=== PATIENT | male | born 1995 | race Caucasian/White ===

== ENCOUNTER 2016-10-13 14:22 | Emergency (ER) | payer OTHER ==
[~2016-10-13] VITALS: Ht 182.9 cm; Wt 75.8 kg
[2016-10-13 14:34] VITALS: TEMP 36.6; Ht 182.9 cm; Wt 75.8 kg
--- NOTE | 2016-10-13 15:29 | DIAGNOSTIC IMAGING REPORT ---
RIGHT ANKLE 3 VIEWS HISTORY: Right ankle pain. COMPARISON: None. FINDINGS: There is no fracture or dislocation. Lateral ankle/foot soft tissue swelling. No radiopaque foreign bodies. IMPRESSION: No fractures. Electronically signed by: Chas Moraes M.D. 10/13/2016 3:27 PM Dictated Date/Time: 10/13/2016 3:25 PM
--- NOTE | 2016-10-13 15:38 | EMERGENCY ROOM VISIT NOTE ---
ED Visit Note First contact with patient: 15:03 Chief Complaint: RIGHT Heel Pain History of Present Illness: Patient is a 21-year-old male who presents to the emergency department by private vehicle for evaluation of his RIGHT heel and ankle pain. He reports that on Friday night he jumped from a small retaining wall and missed his landing resulted in immediate pain to the heel and ankle. He reports increasing pain with ambulation. He did purchase a pair of crutches to help with ambulation. He denies any numbness or tingling into the toes. He reports no history of fracture or injury to the affected area. The patient rates his current discomfort as a 10/10. He is tried nothing sdvc-[id number]-[id number] for symptoms. He denies any associated toe pain, leg pain, knee pain, or hip pain. Medications: No current medications. Allergies: Penicillins, cephalosporins PMH: No pertinent past medical history. SHx: Patient is a 21-year-old [employer] student who lives with roommates. ROS: All pertinent positive and negative review of systems are appropriately documented in the History of Present Illness. Physical Exam: VITAL SIGNS - Vital signs and nursing notes were reviewed. GENERAL - 21-year-old male appearing his stated age and in noticeable discomfort throughout the exam. MUSCULOSKELETAL - RIGHT ankle with moderate edema and developing ecchymosis to the lateral surface of the RIGHT ankle. Tenderness to palpation appreciated in this area. Tenderness to palpation noted to the RIGHT heel. Full range of motion of flexion and extension of the affected foot appreciated. +5/5 strength appreciated bilaterally. NEUROLOGIC/VASCULAR - Neurovascularly intact distally with +3/5 dorsalis pedis pulses palpated bilaterally. Normal sensation to light and sharp touch appreciated distally. IMAGING: RIGHT ANKLE 3 VIEWS HISTORY: Right ankle pain. COMPARISON: None. FINDINGS: There is no fracture or dislocation. Lateral ankle/foot soft tissue swelling. No radiopaque foreign bodies. IMPRESSION: No fractures. ED Course: Patient was seen and evaluated by myself. Patient was provided an ice pack for comfort. X-rays were obtained of the affected ankle. Imaging results as above. Images were discussed and reviewed with the patient who acknowledges understanding. Patient was provided a Gel Ankle Splint for their comfort. Patient has crutches of his own. Patient will utilize uysd-mxa-zcwbsva medication for pain control at home. Patient educated on worrisome symptoms for return visit to the emergency department. Patient with follow-up with their primary care provided in 4-5 days if their symptoms are not improving. Patient discharged to home in good condition. Impression: RIGHT Ankle Sprain, RIGHT Heel Contusion Discharge Instructions: You have been treated in the Emergency Department for your RIGHT Ankle Sprain and RIGHT Heel Contusion. For pain control, you can use the following urbb-ovi-jjmtfrz medicines (if >12 yo): - Regular strength (325mg/tab) Tylenol (acetaminophen) 2 tabs every 4-6 hours as needed. Do not exceed 12 tablets in a 24 hour period. Avoid taking more than 4 grams (4000 mg) of Tylenol per day. This includes any other sources of acetaminophen you may take on a regular basis. - Regular strength (200 mg/tab) Advil (ibuprofen) 1-2 tabs every 4-6 hours as needed. Do not exceed a dose of 3200 mg per day. If this is a recent injury (<24 hrs), ice can be applied to the area of pain for the first 3 days to help decrease pain and inflammation. Please use the crutches and ankle splint until you are able to ambulate without discomfort. You can continue to use the ankle splint for the next 1-2 weeks to help with ankle stability. Follow-up with your primary care provider or Orthopedic Surgeon in 4-5 days if your symptoms are not improving despite the treatment plan outlined above. Return to the Emergency Department if your current symptoms worsen despite treatment course outlined above, or if you develop any of the following symptoms : intractable pain despite aforementioned treatment course or new onset of numbness or tingling of the foot. Current/Historical Medications No Active Prescriptions or Reported Meds Allergies Coded Allergies: Cephalosporins (Verified Allergy, Intermediate, Hives, 10/13/16) Penicillins (Verified Allergy, Intermediate, Hives, 10/13/16) Vital Signs Date Time Temp Pulse Resp B/P Pulse Ox O2 Delivery O2 Flow Rate FiO2 10/13/16 15:48 57 18 115/64 97 10/13/16 14:34 36.6 71 18 123/62 97 Room Air Departure Information Impression Primary Impression: Ankle sprain Additional Impression: Contusion of heel Dispostion Home / Self-Care Condition GOOD Prescriptions No Active Prescriptions or Reported Meds Referrals No Doctor, Assigned (PCP) Rogusky, Jeromy,M.D. Patient Instructions Ankle Sprain, My [facility] Additional Instructions You have been treated in the Emergency Department for your RIGHT Ankle Sprain and RIGHT Heel Contusion. For pain control, you can use the following jwrm-suw-gjuiaxe medicines (if >12 yo): - Regular strength (325mg/tab) Tylenol (acetaminophen) 2 tabs every 4-6 hours as needed. Do not exceed 12 tablets in a 24 hour period. Avoid taking more than 4 grams (4000 mg) of Tylenol per day. This includes any other sources of acetaminophen you may take on a regular basis. - Regular strength (200 mg/tab) Advil (ibuprofen) 1-2 tabs every 4-6 hours as needed. Do not exceed a dose of 3200 mg per day. If this is a recent injury (<24 hrs), ice can be applied to the area of pain for the first 3 days to help decrease pain and inflammation. Please use the crutches and ankle splint until you are able to ambulate without discomfort. You can continue to use the ankle splint for the next 1-2 weeks to help with ankle stability. Follow-up with your primary care provider or Orthopedic Surgeon in 4-5 days if your symptoms are not improving despite the treatment plan outlined above. Return to the Emergency Department if your current symptoms worsen despite treatment course outlined above, or if you develop any of the following symptoms : intractable pain despite aforementioned treatment course or new onset of numbness or tingling of the foot. Problem Qualifiers Primary Impression: Ankle sprain Encounter type: initial encounter Involved ligament of ankle: unspecified ligament Laterality: right Qualified Codes: S93.401A - Sprain of unspecified ligament of right ankle, initial encounter Additional Impression: Contusion of heel Encounter type: initial encounter Laterality: right Qualified Codes: S90.31XA - Contusion of right foot, initial encounter
[2016-10-13 15:48] VITALS: BP 115/64; PULSE 57; O2SAT 97
== END 2016-10-13 15:49 | disposition home or self-care (01) ==
LOC: C.EDB 14:24 → C.EDD 15:49
DX: S93.401A Sprain of unspecified ligament of right ankle, initial encounter (principal); S90.31XA Contusion of right foot, initial encounter; W17.89XA Other fall from one level to another, initial encounter; Y93.39 Activity, other involving climbing, rappelling and jumping off; Y99.8 Other external cause status